=== PATIENT | female | born 1965 | race Asian ===

== ENCOUNTER 2016-03-04 07:40 | Outpatient (CLI) | payer OTHER ==
[~2016-03-04] VITALS: Ht 167.6 cm; Wt 148.3 kg
[~2016-03-04 07:40] MED LIST: BENICAR20 MG PO; CLOP75TA2 PO; DIPY200C PO; FOLI1TAB26 PO; HYDR25TA60 PO; NEURONTIN 100M100 MG OR
[2016-03-04 08:00] VITALS: BP 182/66; TEMP 98.2; TEMP 98.8
== END 2016-03-04 16:37 | disposition home or self-care (01) ==
LOC: INF 07:40
PROC: 30233N1 Transfusion of Nonautologous Red Blood Cells into Peripheral Vein, Percutaneous Approach (ICD-10-PCS; principal; 2016-03-04)
DX: D64.89 Other specified anemias (principal)
CPT/HCPCS: 36415; 36430; 85014; 85018; 86850; 86900; 86901; 86922; P9016

== ENCOUNTER 2016-03-17 15:46 | Outpatient (CLI) | payer OTHER | END 2016-03-17 22:08 | disposition home or self-care (01) | LOC: MAMMO 15:46 → MRI 16:00 → MAMMO 22:08 | DX: Z12.31 Encounter for screening mammogram for malignant neoplasm of breast (principal) | CPT/HCPCS: G0202-TC ==

== ENCOUNTER 2016-05-02 07:42 | Outpatient (CLI) | payer OTHER | END 2016-05-02 19:18 | disposition home or self-care (01) | LOC: MRI 07:42 | DX: R29.898 Other symptoms and signs involving the musculoskeletal system (principal) | CPT/HCPCS: 36415; 82565; 84520; A9576 ==

== ENCOUNTER 2018-07-16 09:06 | Outpatient (CLI) | payer OTHER | END 2018-07-16 19:11 | disposition home or self-care (01) | LOC: MAMMO 09:06 | DX: Z12.31 Encounter for screening mammogram for malignant neoplasm of breast (principal) ==

== ENCOUNTER 2019-01-23 10:07 | Outpatient (CLI) | payer OTHER | END 2019-01-23 21:52 | disposition home or self-care (01) | LOC: RAD 10:07 | DX: Z02.1 Encounter for pre-employment examination (principal); Z88.8 Allergy status to other drugs, medicaments and biological substances ==

== ENCOUNTER 2019-11-07 08:57 | Outpatient (CLI) | payer BC ==
[2019-11-07 09:55] LABS: POTASSIUM 3.8 mmol/L (3.6-5.2)
[2019-11-07 09:57] LABS: PLATELET COUNT 221 K/uL (152-353)
== END 2019-11-07 23:27 | disposition home or self-care (01) ==
LOC: LABW 08:57
PROVIDERS: Internal Medicine
DX: I10 Essential (primary) hypertension (principal)
CPT/HCPCS: 36415; 80053; 80061; 81000; 84439; 84443; 85027

== ENCOUNTER 2019-12-06 09:05 | Outpatient (CLI) | payer BC | END 2019-12-06 20:33 | disposition home or self-care (01) | LOC: MAMMO 09:05 | DX: Z12.31 Encounter for screening mammogram for malignant neoplasm of breast (principal) ==

== ENCOUNTER 2020-09-11 15:37 | Emergency (ER) | payer BC ==
[~2020-09-11] VITALS: Ht 167.6 cm; Wt 152.9 kg
[2020-09-11 16:43] LABS: PLATELET COUNT 240 K/uL (152-353)
[2020-09-11 16:55] LABS: POTASSIUM 3.1 mmol/L (3.6-5.2); SODIUM 141 mmol/L (136-145)
[2020-09-11 20:05] VITALS: BP 191/61; TEMP 97.8
== END 2020-09-11 20:05 | disposition home or self-care (01) ==
LOC: ED 15:37
PROVIDERS: Family Medicine
DX: R42 Dizziness and giddiness (principal); E87.6 Hypokalemia; J06.9 Acute upper respiratory infection, unspecified; J81.1 Chronic pulmonary edema; Z20.822 Contact with and (suspected) exposure to COVID-19
CPT/HCPCS: 80053; 81000; 84484; 85027; 87635; 93005; 96374; 99284; J1940; U0003

== ENCOUNTER 2020-10-01 09:28 | Outpatient (CLI) | payer BC | END 2020-10-01 19:36 | disposition home or self-care (01) | LOC: MRI 09:28 | PROVIDERS: ATTEND Internal Medicine | DX: I63.81 Other cerebral infarction due to occlusion or stenosis of small artery (principal) ==

== ENCOUNTER 2021-02-10 16:23 | Emergency (ER) | payer BC ==
[~2021-02-10] VITALS: Ht 167.6 cm; Wt 152.9 kg
[2021-02-10 17:07] LABS: PLATELET COUNT 253 K/uL (152-353)
[2021-02-10 17:17] LABS: POTASSIUM 3.3 mmol/L (3.6-5.2)
[2021-02-10 19:28] VITALS: BP 145/83; TEMP 98.4
== END 2021-02-10 20:13 | disposition home or self-care (01) ==
LOC: ED 16:23
PROVIDERS: Emergency Medicine Emergency Medical Services
DX: R55 Syncope and collapse (principal)
CPT/HCPCS: 80053; 84484; 85027; 93005; 96360; 99284

== ENCOUNTER 2021-06-28 15:33 | Outpatient (CLI) | payer BC | END 2021-06-28 18:55 | disposition home or self-care (01) | LOC: US 15:33 | PROVIDERS: ATTEND Internal Medicine | DX: M25.561 Pain in right knee (principal); M79.89 Other specified soft tissue disorders ==